=== PATIENT | female | born 1975 | race Hispanic/Latino ===

== ENCOUNTER 2018-03-27 08:53 | Outpatient (CLI) | payer BC | END 2018-03-27 08:54 | disposition home or self-care (01) | LOC: RAD 08:53 | DX: Z12.31 Encounter for screening mammogram for malignant neoplasm of breast (principal) ==

== ENCOUNTER 2018-04-25 08:31 | Emergency (ER) | payer BC ==
[2018-04-25 08:34] VITALS: BMI 26.4
[2018-04-25] MEDS ORDERED: Pantoprazole 40 MG in Sodium Chloride 0.9% 100 ML IV STA (08:42)
--- NOTE | 2018-04-25 08:42 | ED PDOC ---
Arrival/HPI - General Chief Complaint: Chest Pain Time Seen by Provider: 04/25/18 08:33 Historian: Patient - History of Present Illness Narrative History of Present Illness (Text): 04/25/18 08:41 A 43 year old female, whose past medical history includes cholecystectomy presents to the emergency department complaining of epigastric pain with non- productive cough starting today. Patient reports she recently had her wisdom tooth removed 3 days ago, and since then she has been experiencing vomiting, sore throat, questionable fever, chills, weakness, and fatigue. States she has taken Amoxicillin and Ibuprofen for the past few days. Patient denies any other complaints at this time. Denies any history of alcohol consumption, and states she quit smoking approximately 5 years ago. Associated Symptoms (Text): 04/25/18 09:47 Left upper wisdom tooth extraction 3 days ago. Since then sore throat nausea vomiting weakness fatigue myalgias arthralgias. Today she developed epigastric pain and came to the emergency department accompanied by her . She has been taking Motrin and amoxicillin since the wisdom tooth extraction. Past Medical History - Provider Review Nursing Documentation Reviewed: Yes - Infectious Disease Hx of Infectious Diseases: None - Psychiatric Hx Substance Use: No - Surgical History Hx Cholecystectomy: Yes - Anesthesia Hx Anesthesia Reactions: No Hx Malignant Hyperthermia: No Family/Social History - Physician Review Nursing Documentation Reviewed: Yes Family/Social History: No Known Family HX Smoking Status: Never Smoked Hx Alcohol Use: No Hx Substance Use: No Allergies/Home Meds Allergies/Adverse Reactions: Allergies No Known Allergies Allergy (Verified 04/25/18 08:33) Review of Systems - Physician Review All systems were reviewed & negative as marked: Yes - Review of Systems Constitutional: Fatigue, Fevers (questionable), Night Sweats, Other (weakness) ENT: Sore Throat Respiratory: Cough (non-productive) Cardiovascular: absent: Chest Pain, Palpitations, Syncope Gastrointestinal: Abdominal Pain (epigastric), Vomiting, Anorexia. absent: Constipation, Diarrhea Genitourinary Female: absent: Dysuria, Frequency, Hematuria Neurological: absent: Headache, Dizziness, Focal Weakness Physical Exam Temperature: Afebrile Blood Pressure: Normal Pulse: Regular Respiratory Rate: Normal Appearance: Positive for: Uncomfortable Pain Distress: None Mental Status: Positive for: Alert and Oriented X 3 - Systems Exam Head: Present: Atraumatic, Normocephalic Pupils: Present: PERRL Extroacular Muscles: Present: EOMI Ears: Present: NORMAL TM, Normal Canal. No: Erythema, TM Bulging Mouth: Present: Moist Mucous Membranes, Other (left upper wisdom tooth removal, clean wound, no facial swelling, no lymphadenopathy.) Pharnyx: Present: ERYTHEMA. No: EXUDATE, TONSILS ENLARGED Neck: Present: Normal Range of Motion Respiratory/Chest: Present: Clear to Auscultation, Good Air Exchange. No: Respiratory Distress, Accessory Muscle Use Cardiovascular: Present: Regular Rate and Rhythm, Normal S1, S2. No: Murmurs Abdomen: Present: Tenderness (mild epigastric tenderness). No: Distention, Peritoneal Signs, Rebound, Guarding Back: Present: Normal Inspection. No: CVA Tenderness Upper Extremity: Present: Normal Inspection. No: Cyanosis, Edema Lower Extremity: Present: Normal Inspection. No: Edema Neurological: Present: GCS=15, CN II-XII Intact, Speech Normal, Motor Func Grossly Intact Skin: Present: Warm, Dry, Normal Color. No: Rashes Psychiatric: Present: Alert, Oriented x 3, Normal Insight, Normal Concentration Medical Decision Making ED Course and Treatment: 04/25/18 08:41 Impression: 43 year old female with epigastric pain with non-productive cough, vomiting, sore throat, questionable fever, chills, weakness, and fatigue. Plan: -- EKG -- Labs -- Zofran -- Protonix -- IV Fluids -- Toradol -- Urinalysis -- Rapid Strep Test -- Influenza A/B Test -- POC Urine Test -- Reassess and disposition Progress Notes: 04/25/18 09:49 EKG shows normal sinus rhythm rate approximately 75 with a sinus arrhythmia and no acute ST or T wave changes. 04/25/18 10:05 Symptoms markedly improved. 04/25/18 11:10 Symptoms improved. Discharged home accompanied by her to follow-up with PMD and dentist. Follow-up in the ER as needed. - RAD Interpretation Radiology Orders: Chest one view was read by the radiologist shows no infiltrate effusion or cardiomegaly. Saloonkeeper: Radiologist - Scribe Statement The provider has reviewed the documentation as recorded by the Tiffanie Méndez Provider Scribe Attestation: All medical record entries made by the Tiffanie were at my direction and personally dictated by me. I have reviewed the chart and agree that the record accurately reflects my personal performance of the history, physical exam, medical decision making, and the department course for this patient. I have also personally directed, reviewed, and agree with the discharge instructions and disposition. Disposition/Present on Arrival - Present on Arrival Any Indicators Present on Arrival: No History of DVT/PE: No History of Uncontrolled Diabetes: No Urinary Catheter: No History of Decub. Ulcer: No History Surgical Site Infection Following: None - Disposition Have Diagnosis and Disposition been Completed?: Yes Diagnosis: Abdominal pain, Nausea and vomiting Disposition: HOME/ ROUTINE Disposition Time: 11:10 Patient Plan: Discharge Patient Problems: Current Active Problems Problem Status Onset Abdominal pain Acute Nausea and vomiting Acute Condition: IMPROVED Discharge Instructions (ExitCare): Acute Abdomen (Belly Pain), Nausea and Vomiting, Adult Additional Instructions: Stop taking the Motrin. Finish amoxicillin. Follow-up with PMD. Follow-up in ER as needed. Prescriptions: Tramadol HCl [Ultram] 50 mg PO Q6 PRN #10 tab PRN Reason: Pain Ondansetron ODT [Zofran ODT] 4 mg PO Q6 #20 odt Referrals: Maricruz LESLIE,Adarsh Irving MD [Primary Care Provider] - Follow up with primary Forms: [employer] ([employer])
[2018-04-25] MEDS ORDERED: Sodium Chloride 0.9% 1,000 ML IV ONE (08:43)
[2018-04-25 08:45] VITALS: RESP 18; TEMP 97.5
[2018-04-25 09:52] LABS: BASO # 0.03 {null, K/mm3} (0.0-2.0); BASO % 0.3 % (0.0-3.0); EOS # 0.2 (0.0-0.7); EOS % 1.8 % (1.5-5.0); HEMOGLOBIN 12.9 g/dL (12.0-16.0); LYMPH # 2.4 (1.2-3.4); LYMPH % 25.5 % (22.0-35.0); MEAN CELL VOLUME 83.7 fl (80.0-105.0); MEAN CORPUSCULAR HEMOGLOBIN 27.3 pg (25.0-35.0); MEAN CORPUSCULAR HGB CONC 32.6 g/dl (31.0-37.0); MEAN PLATELET VOLUME 9.2 fl (7.0-11.0); MONO # 0.6 (0.1-0.6); MONO % 6.9 % (1.0-6.0); RBC 4.73 {null, 10^6/uL} (3.5-6.1); RED CELL DISTRIBUTION WIDTH 14.2 % (11.5-14.5); WHITE BLOOD COUNT 9.3 {null, 10^3/uL} (4.5-11.0)
[2018-04-25 10:02] LABS: INFLUENZA A B NEGATIVE FOR FLU A/B (NEGATIVE)
[2018-04-25 10:03] LABS: ALB/GLOB RATIO 1.3 (1.1-1.8); ALBUMIN 4.3 g/dL (3.0-4.8); ALT/SGPT 45 U/L (7-56); AMYLASE 50 U/L (35-125); AST/SGOT 53 U/L (14-36); BLOOD UREA NITROGEN 13 mg/dL (7-21); CALCIUM 8.9 mg/dL (8.4-10.5); GFR NON-AFRICAN AMERICAN > 60; LIPASE 56 U/L (23-300)
[2018-04-25 10:12] LABS: TROPONIN I < 0.01 ng/mL
--- NOTE | 2018-04-25 10:34 | RAD ---
HISTORY: ap COMPARISON: None available TECHNIQUE: Chest, one view. FINDINGS: LUNGS: No focal consolidation. Please note that chest x-ray has limited sensitivity for the detection of pulmonary masses. PLEURA: No significant pleural effusion identified. No definite pneumothorax . CARDIOVASCULAR: The cardiomediastinal silhouette appears within normal limits of size. No significant atherosclerotic calcification present. OSSEOUS STRUCTURES: No acute osseous abnormality identified. VISUALIZED UPPER ABDOMEN: Elevation of the left hemidiaphragm. OTHER FINDINGS: None. IMPRESSION: No acute findings identified.
[2018-04-25 11:33] LABS: URINE BILIRUBIN NEGATIVE (NEGATIVE); URINE BLOOD NEGATIVE (NEGATIVE); URINE GLUCOSE (UA) NEGATIVE (NEGATIVE); URINE LEUKOCYTE ESTERASE NEGATIVE Leu/uL (NEGATIVE); URINE PROTEIN NEGATIVE mg/dL (<30 mg/dL); URINE UROBILINOGEN 0.2 E.U./dL (<1 E.U./dL)
[2018-04-25 11:48] LABS: URINE APPEARANCE CLEAR (CLEAR); URINE COLOR YELLOW (YELLOW)
[2018-04-25 11:58] VITALS: BP 95/62; PULSE 78; O2SAT 98
--- NOTE | 2018-04-25 14:36 | CARD ---
APPROVED REPORT Date of service: 04/25/2018 EKG Measurement Heart [id number] <Conclusion> Normal sinus rhythm with sinus arrhythmia Normal ECG
== END 2018-04-25 12:00 | disposition home or self-care (01) ==
LOC: ED 08:31
DX: R10.9 Unspecified abdominal pain (principal); R11.2 Nausea with vomiting, unspecified; Z90.49 Acquired absence of other specified parts of digestive tract
CPT/HCPCS: 71045; 80053; 81003; 81025; 82150; 82550; 83615; 83690; 84484; 85025; 87070; 87430; 87804; 93005; 96361; 96374; 96375; 99284; C9113; J1885; J2405; J7040